=== PATIENT | female | born 2000 | race Caucasian/White ===

== ENCOUNTER 2024-07-22 15:30 | Emergency (ER) | payer OTHER, SELFPAY ==
[2024-07-22 15:40] VITALS: BP 150/83
[2024-07-22] MEDS: MOTRIN 600 MG PO (15:49)
[2024-07-22 16:17] LABS: % Basophils 0.4 % (0-2); % Eosinophils 2.2 % (0-6); % Immature Granulocytes 0.2 % (0-0.5); % Lymphocytes 20.2 % (20.5-51.1); % Monocytes 8.6 % (1.7-9.3); % Neutrophils 68.4 % (42.2-75.2); Absolute Eosinophils 0.1 10^3/uL (0-0.7); Absolute Monocytes 0.4 10^3/uL (0.1-0.6); Absolute Neutrophils 3.4 10^3/uL (1.4-6.5); Hemoglobin 13.4 g/dL (12.0-16.0); Mean Corp Hgb Conc. 32.7 g/dL (33.0-37.0); Mean Corpuscular Hgb 26.7 pg (27.0-31.0); Mean Corpuscular Volume 81.8 fL (81.0-99.0); Mean Platelet Volume 8.6 fL (7.4-10.4); Nucleated Red Blood Cells % 0 %; Platelet Count 218 10^3/uL (130-400); Red Blood Cell Count 5.01 10^6/uL (4.20-5.40); Red Cell Dist. Width 14.2 % (11.5-14.5)
[2024-07-22 16:20] LABS: Lactic Acid 1.5 mmol/L (0.7-2.0)
[2024-07-22 16:22] LABS: HCG, Serum Qualitative Screen Negative
[2024-07-22 16:27] LABS: ALT (SGPT) 20 U/L (0-35); AST (SGOT) 24 U/L (14-36); Albumin 4.9 g/dl (3.5-5.0); Alkaline Phosphatase 94 U/L (38-126); Blood Urea Nitrogen 6 mg/dl (7-17); Carbon Dioxide 21 mmol/L (22-30); Chloride 102 mmol/L (98-107); Glucose 113 mg/dl (70-99); Potassium 4.7 mmol/L (3.5-5.1); Sodium 136 mmol/L (135-145); Total Bilirubin 1.5 mg/dl (0.2-1.3); eGFR > 60.00
[2024-07-22 16:28] LABS: COVID-19 Antigen Negative (Negative)
--- NOTE | 2024-07-22 18:01 | ED.GENMED ---
History of Present Illness
General
Chief Complaint: Cold/Flu/URI Symptoms
Source: patient
Exam Limitations: none
Time Seen by Provider: 07/22/24 17:53
History of Present Illness
History of Present Illness:
This is a 24 year old female that comes in with c/o flu like symptoms. States that she started yesterday with flu like symptoms. States that she went to and everything was negative. States that she has had fever with chills, cough, occasional
SOB, nausea, headache and dizziness. Denies any abd pain, vomiting, diarrhea, urinary burning.
Past History
Past History
ED Past Medical History: Asthma and Psychiatric (Anxiety, Depression)
ED Past Surgical History: Tonsilectomy (and adenoids)
Social History
Tobacco: Non-smoker
Alcohol: Occasional
Personal: Single
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
Review of Systems
Review of Systems
All Other Systems: ROS reviewed and negative except as documented in HPI and ROS
Constitutional: Reports fever and chills
EENT: Reports no symptoms
Respiratory: Reports cough and trouble breathing (occasional)
Cardiac: Denies chest pain
ABD/GI: Reports nausea; Denies abdominal pain, vomiting or diarrhea
: Reports no symptoms; Denies dysuria, frequency or urgency
Musculoskeletal: Reports no symptoms
Skin: Reports no symptoms
Neurological: Reports dizzy and headache
Psychiatric: Reports no symptoms
Phy Exam
General Physical Exam
General Presentation: no apparent distress
General age: appears stated age
General Skin: diaphoretic (Patient was given Motrin for fever)
General Habitus: normal
General Mental: alert
General Hydration: appears well hydrated
ENT Exam
ENT Exam: TM's normal, pharynx normal and neck supple
Eye Exam
Eye Exam: EOMI
Cardiovascular Exam
Cardiovascular Exam: no edema, no murmur, normal peripheral pulses and tachycardia
Pulmonary Exam
Pulmonary Exam: lungs clear, no respiratory distress, no rales, chest non tender, no crackles, no rhonchi, no wheezing and no cough
Gastrointestinal Exam
Gastrointestinal Exam: normal bowel sounds, non tender, soft, no organomegaly, no pulsatile mass and non distended
Musculoskeletal Exam
Musculoskeletal Exam: full ROM and no edema
Skin Exam
Skin Exam: normal color, warm/dry, no rash and no petechia
Psychiatric Exam
Psychiatric Exam: normal mood/affect
Sepsis
Sepsis Screening
Sepsis Assessment: Sepsis Ruled Out
Sepsis Screen
Sepsis Screen: Sepsis Ruled Out
Date: 07/22/24
Time: 19:44
Course
Orders/Labs/Results
Orders:
Orders
07/22/24 15:45
Electrocardiogram (*1) Urgent
Reason for Study: Palpitations
EKG- Treatment ONCE
Test Result ONCE
07/22/24 15:47
Ibuprofen [Motrin] 600 mg .ROUTE .STK-MED ONE
07/22/24 15:49
Ibuprofen [Motrin] 600 mg PO NOW STA
07/22/24 15:54
COVID-19 Antigen Urgent
Source: Nasal Swab
Complete Blood Count/With Diff Urgent
Comprehensive Metabolic Panel Urgent
HCG, Serum Qualitative Screen Urgent
Lactic Acid Urgent
Influenza A+B Rapid Molecular Urgent
STAS Source: Nasal Swab
Specimen Description:
07/22/24 18:00
0.9% Sodium Chloride 1000 ml [Nss] 1,000 ml IV BOLUS
07/22/24 18:01
Ondansetron Injectable [Zofran] 4 mg IV NOW STA
07/22/24 18:[address] Non Medication Order As Directed
Physician Order: Please recheck vitals
Above order entered?: Yes
Abnormal Lab Results
07/22/24
15:54
MCH 26.7 L pg
(27.0-31.0)
MCHC 32.7 L g/dL
(33.0-37.0)
Absolute Lymphs (auto) 1.0 L 10^3/uL
(1.2-3.4)
Lymphocytes % 20.2 L %
(20.5-51.1)
Carbon Dioxide 21 L mmol/L
(22-30)
BUN 6 L mg/dl
(7-17)
Glucose 113 H mg/dl
(70-99)
Total Bilirubin 1.5 H mg/dl
(0.2-1.3)
07/22/24 15:54
07/22/24 15:54
glucose nonfasting. Total winsome slightly elevated. Lactic acid normal at 1.5, HCG negative. COVID negative. Influenza A positive.
Vital Signs
Initial and Last Documented VS:
Initial Vital Signs
Temp Pulse Resp BP Pulse Ox
103.2 F H 145 18 150/83 98
07/22/24 15:40 07/22/24 15:40 07/22/24 15:40 07/22/24 15:40 07/22/24 15:40
Last Documented Vital Signs
Temp Pulse Resp BP Pulse Ox
99.3 F 104 16 109/72 95
07/22/24 18:32 07/22/24 18:32 07/22/24 18:32 07/22/24 18:32 07/22/24 18:32
MDM/Problems Addressed
Differential Diagnosis Includes:
COVID, Influenza, PNA
MDM/Problems Addressed:
This is a 24 year old female that comes in with c/o flu like symptoms. States that this started yesterday. Patient was seen at and was told that everything was negative.
Will check labs. COVID, Influenza and give IV fluids, Zofran and ECG.
Explained that she has Influenza A. Encouraged patient to increase her water intake to 8-8oz glasses daily. Tylenol or IBuprofen for fever. Follow up with the family doctor. Return with any concerns.
Chronic conditions affecting care: Asthma
Acute Exacerbation and/or Progression of Chronic Illness:
NA
*Pulse Oximetry
Patient hypoxic: no
*EKG
Interpreted by ED Provider?: Yes
Heart Rate: 134
Rate: tachycardiac
Rhythm: sinus
[employer]: normal axis
Interval: normal interval
QRS Pattern: normal QRS
Ischemia: no ischemia
*Sewing Machine Operator Semiautomatic Interpretation
Rate: Sewing Machine Operator Semiautomatic- N/A
*Critical Care Note
Total Time (30-74mins, 75-104mins- exclusive of procedures): Not Applicable
ED Attending Note
-
Portions of this chart may have been created with voice recognition software.� Occasional wrong word or��sound alike� substitutions may have occurred due to the inherent limitations of voice recognition software.
Discharge Plan
Departure
Patient Disposition: Home (Routine Discharge)
Date of Disposition: 07/22/24
Time of Disposition: 19:40
Patient with high blood pressure during this ER visit?: No
Condition: Good
Covid-19: Negative COVID-19
Discharge Problem:
Influenza A
Instructions: Flu in adults - ED discharge instructions
Referrals:
NONE,* [Family Provider] -
Activity Restrictions/Additional Instructions:
As discussed, you have Influenza A. Please increase your water intake to 8-8oz glasses daily. Use Tylenol 1000mg every 6 hours for fever and you can alternate with Ibuprofen 600mg every 6 hours with food for fever and body aches. Follow up with the
family doctor for recheck. IF YOU HAVE ANY OTHER CONCERNS PLEASE RETUR TO THE EMERGENCY ROOM.
Interventions
Interventions:
*Risk Screen - Suicide Last Done: 07/22/24 15:40
*General Assessment Last Done: 07/22/24 15:40
*Neglect/Abuse Screening Last Done: 07/22/24 15:40
*ED COVID-19 Vaccine History Last Done: 07/22/24 15:40
ED- Pulmonary Assessment Last Done: 07/22/24 18:34
Discharge Date and Time
Print Language: TUNISIAN
[2024-07-22 18:32] VITALS: BP 109/72
[2024-07-22] MEDS: NSS 1000 IV (18:43)
[2024-07-22] MEDS: ZOFRAN 4 MG IV (18:45)
== END 2024-07-22 20:25 | disposition home or self-care (01) ==
LOC: EMR 15:30
PROVIDERS: Emergency Medicine; EMERGENCY PHYSICIAN Emergency Medicine
DX: J10.1 Influenza due to other identified influenza virus with other respiratory manifestations (principal); J45.909 Unspecified asthma, uncomplicated; F41.8 Other specified anxiety disorders
CPT/HCPCS: 99283; 96374; 96361; 80053; 83605; 84703; 85025; 87502; 87811; 93005

== ENCOUNTER 2025-02-19 18:34 | Emergency (ER) | payer OTHER, SELFPAY ==
[2025-02-19 18:38] VITALS: BP 116/79
[2025-02-19 20:51] VITALS: BMI 41.1
[2025-02-19 21:25] LABS: Hematocrit 40.4 % (37.0-47.0); Hemoglobin 13.2 g/dL (12.0-16.0); Mean Corp Hgb Conc. 32.7 g/dL (33.0-37.0); Mean Corpuscular Volume 80.3 fL (81.0-99.0); Platelet Count 255 10^3/uL (130-400); Red Cell Dist. Width 13.6 % (11.5-14.5)
[2025-02-19 21:42] LABS: Nucleated Red Blood Cells % 0 %
[2025-02-19 21:45] LABS: HCG, Serum Qualitative Screen Negative
[2025-02-19 21:48] LABS: ALT (SGPT) 17 U/L (0-35); AST (SGOT) 19 U/L (14-36); Albumin 4.7 g/dl (3.5-5.0); Alkaline Phosphatase 98 U/L (38-126); Blood Urea Nitrogen 11 mg/dl (7-17); Calcium 9.8 mg/dl (8.4-10.2); Carbon Dioxide 26 mmol/L (22-30); Chloride 104 mmol/L (98-107); Estimated Creatinine Clearance > 125 ml/min; Glucose 95 mg/dl (70-99); Potassium 4.3 mmol/L (3.5-5.1); Sodium 139 mmol/L (135-145); Total Protein 7.9 g/dl (6.3-8.2); eGFR > 60.00
--- NOTE | 2025-02-19 23:23 | ED.GENMED ---
History of Present Illness
General
Chief Complaint: Medication Reaction
Source: patient
Exam Limitations: none
Time Seen by Provider: 02/19/25 21:42
Nursing documentation reviewed up to this point in time: agreed with
History of Present Illness
History of Present Illness:
24-year-old female presenting to the emergency department today with concerns of nausea poor appetite lightheadedness fatigue ever since starting a new ADHD medication, guanfacine. Generally feels well during my assessment. No specific ongoing
symptoms at this point. No chest pain or shortness of breath.
Past History
Past History
ED Past Medical History: Asthma and Psychiatric (Anxiety, Depression)
ED Past Surgical History: Tonsilectomy (and adenoids)
Social History
Tobacco: Non-smoker
Alcohol: Occasional
Personal: Single
Living: with roommate ([employer] student)
Review of Systems
Review of Systems
Allergies reviewed?: Yes
All Other Systems: ROS reviewed and negative except as documented in HPI and ROS
Phy Exam
Physical Exam
Physical Exam:
GENERAL: Alert , in no apparent distress
EYE: pupils equal and reactive
NECK: Supple, no significant adenopathy.
ENT: o/p clr, mmm.
CARDIAC: Regular rate and rhythm .
LUNGS: Clear breath sounds bilaterally, no acute respiratory distress, no wheezes/rales/rhonchi
ABDOMEN: Soft, without focal tenderness, no r/g, no cvat
NEUROLOGICAL: Alert and oriented, no focal neuro deficits
SKIN: Warm and dry, skin intact.
MUSCULOSKELETAL: No edema, well perfused.
PSYCH: Normal and appropriate interaction.
Course
Orders/Labs/Results
Orders:
Orders
02/19/25 18:43
Test Result ONCE
02/19/25 20:53
Complete Blood Count/With Diff Urgent
Comprehensive Metabolic Panel Urgent
Free T4 Urgent
HCG, Serum Qualitative Screen Urgent
TSH Reflex To Free T4 Urgent
02/19/25 22:18
EKG [Electrocardiogram (*1)] Urgent
Reason for Study: Fatigue / Weakness
EKG- Treatment ONCE
Abnormal Lab Results
02/19/25
20:53
WBC 11.9 H 10^3/uL
(4.8-10.8)
MCV 80.3 L fL
(81.0-99.0)
MCH 26.2 L pg
(27.0-31.0)
MCHC 32.7 L g/dL
(33.0-37.0)
Absolute Lymphs (auto) 6.2 H 10^3/uL
(1.2-3.4)
Neutrophils % 41.1 L %
(42.2-75.2)
Lymphocytes % 51.7 H %
(20.5-51.1)
TSH (Reflex) 6.35 H uIU/ml
(0.47-4.68)
02/19/25 20:53
02/19/25 20:53
Vital Signs
Initial and Last Documented VS:
Initial Vital Signs
Temp Pulse Resp BP Pulse Ox
98.2 F 84 18 116/79 99
02/19/25 18:38 02/19/25 18:38 02/19/25 18:38 02/19/25 18:38 02/19/25 18:38
Last Documented Vital Signs
Temp Pulse Resp BP Pulse Ox
98.2 F 84 18 116/79 99
02/19/25 18:38 02/19/25 18:38 02/19/25 18:38 02/19/25 18:38 02/19/25 18:38
MDM/Problems Addressed
MDM/Problems Addressed:
24-year-old female presenting to the emergency department today with concerns of vague symptoms after starting an ADHD medication. On arrival vital signs are normal. Labs showing very slight elevated white count otherwise labs unremarkable.
Patient able to ambulate well here in no distress EKG without emergent findings. Symptoms most likely consistent with medication side effect advised for close outpatient follow-up and potential discontinuation of the medication. Return precautions
given.
*Pulse Oximetry
SaO2: 99
Oxygen Mode of Delivery: Room air
Patient hypoxic: no (99)
*Critical Care Note
Total Time (30-74mins, 75-104mins- exclusive of procedures): Not Applicable
ED Attending Note
-
Portions of this chart may have been created with voice recognition software.� Occasional wrong word or��sound alike� substitutions may have occurred due to the inherent limitations of voice recognition software.
Discharge Plan
Departure
Patient Disposition: Home (Routine Discharge)
Date of Disposition: 02/19/25
Time of Disposition: 23:24
Patient with high blood pressure during this ER visit?: No
Condition: Good
Covid-19: Not Applicable
Discharge Problem:
Medication side effect
Referrals:
NONE,* [Family Provider, Internal Medicine]
Activity Restrictions/Additional Instructions:
You came to the emergency department today with concerns of symptoms potentially consistent with side effects to your medication. Please follow closely as an outpatient for this. Return for any worsening, new or concerning symptoms.
Interventions
Interventions:
*Risk Screen - Suicide Last Done: 02/19/25 18:38
*General Assessment Last Done: 02/19/25 18:38
*Neglect/Abuse Screening Last Done: 02/19/25 20:51
*ED- Fall Risk Assessment Last Done: 02/19/25 20:51
*ED COVID-19 Vaccine History Last Done: 02/19/25 20:51
ED-Skin Assessment Last Done: 02/19/25 21:48
ED- Pulmonary Assessment Last Done: 02/19/25 21:48
ED-EENT Assessment Last Done: 02/19/25 21:48
Discharge Date and Time
Print Language: GUATEMALAN
== END 2025-02-19 23:32 | disposition home or self-care (01) ==
LOC: EMR 18:34
PROVIDERS: Emergency Medicine; EMERGENCY PHYSICIAN Emergency Medicine
DX: T50.905A Adverse effect of unspecified drugs, medicaments and biological substances, initial encounter (principal); Y92.9 Unspecified place or not applicable; J45.909 Unspecified asthma, uncomplicated; F41.8 Other specified anxiety disorders; F90.9 Attention-deficit hyperactivity disorder, unspecified type
CPT/HCPCS: 99283; 80053; 84439; 84443; 84703; 85025; 93005